=== PATIENT | female | born 1935 | race Caucasian/White ===

== ENCOUNTER 2018-01-13 22:02 | Inpatient (IN) | payer OTHER ==
[~2018-01-13] VITALS: Ht 144.8 cm; Wt 95.5 kg
[~2018-01-13 22:02] MED LIST: ADVAIR 100/501 DISK IH; ALLOPURINOL100 MG PO; CALCITRIOL0.25 MCG PO; CARDURA1 M1 PO; CARDURA4 MG PO; CIPRO500 MG PO; DILAUDID2 MG PO; DOCUSATE SODIU100 MG PO; ERGOCALCIF50000 UNIT PO; FLAGYL500 MG PO; FUROSEMIDE40 MG PO; IRON325 M1 PO; LISINOPRIL5 MG PO; LITE COAT ASPI325 M1 PO; METHOCARBAMOL500 MG PO; PERCOCET 5/31 TABLET PO; PROAIR HFA8.5 GM IH; SIMBRINZA 1%-0.28 ML BOTH EYES; SIMVASTATIN20 MG PO; SKELAXIN800 MG PO; SYNTHROID100 MCG PO; SYNTHROID88 MCG PO; TRAMADOL HCL50 MG PO; TRAVATAN Z5 ML BOTH EYES; TRAVATAN Z5 ML RIGHT EYE; TYLENOL REGULA325 MG PO; VITAMIN D250000 UNIT PO; ZYLOPRIM300 MG PO
[2018-01-14 06:11] VITALS: BP 175/81
[2018-01-14 11:53] VITALS: BP 107/61
[2018-01-14 12:00] VITALS: BP 140/64
[2018-01-14 13:26] VITALS: BP 161/72
[2018-01-14 14:15] VITALS: BP 157/72
[2018-01-14 23:52] VITALS: BP 133/60
[2018-01-15 04:20] VITALS: BP 123/60
[2018-01-15 07:00] LABS: CHLORIDE 107 MEQ/L (99-109); CREATININE 1.4 MG/DL (0.6-1.3); GFR ESTIMATE (CALCULATED) 38 mL/min/; GLUCOSE 120 mg/dL (70-99); SODIUM 140 MEQ/L (136-147); UREA NITROGEN (BUN) 32 mg/dL (9-23)
[2018-01-15 07:56] VITALS: BP 132/63
[2018-01-15 11:44] VITALS: BP 133/62
[2018-01-15 16:00] VITALS: BP 140/64
[2018-01-15 20:34] VITALS: BP 177/80
[2018-01-15 23:51] VITALS: BP 178/82
[2018-01-16 08:25] VITALS: BP 140/63
[2018-01-16] MEDS ORDERED: SENNA PLUS TAB1 EACH PO (09:24)
[2018-01-16] MEDS ORDERED: ELIQUIS2.5 MG PO (09:25)
[2018-01-16] MEDS ORDERED: TRAMADOL HCL50 MG PO (09:25)
[2018-01-16] MEDS ORDERED: Salonpas 4% Patch TD (09:25)
[2018-01-16 15:46] VITALS: BP 112/56
[2018-01-16 17:53] LABS: HEMATOCRIT 36.1 % (36.0-46.0); HEMOGLOBIN 11.6 G/DL (11.9-15.5); MCV 96.8 FL (83-99)
[2018-01-17] VITALS: BP 124/58
[2018-01-17 07:24] VITALS: BP 139/63
== END 2018-01-17 12:00 | DRG 470 ==
LOC: ENRESERV 22:02 → 3EAST 01-14 05:25 → 2SOUTH 01-14 05:25 → ENRESERV 01-14 10:26 → 2SOUTH 01-14 10:51 → 3EAST 01-14 11:29
PROVIDERS: Orthopaedic Surgery
PROC: 0SRD0J9 Replacement of Left Knee Joint with Synthetic Substitute, Cemented, Open Approach (ICD-10-PCS; principal; 2018-01-14)
DX: M17.12 Unilateral primary osteoarthritis, left knee (principal); E66.01 Morbid (severe) obesity due to excess calories; Z68.42 Body mass index [BMI] 45.0-49.9, adult
CPT/HCPCS: 71045; 80048; 85014; 85018; 94799; C1713; J0131; J0690; J1100; J1885; J2405; J2795; J3010; J7050; J7120; L1820; S0020